=== PATIENT | male | born 1945 | race Caucasian/White ===

== ENCOUNTER 2024-09-14 11:46 | Observation (INO) ==
[~2024-09-14 11:46] MED LIST: Dexamethasone IV 4 MG/ML VIAL 1 ml VIAL ONE; Lidocaine 2% PF 5 ML VIAL ONE; Midazolam 2 mg/2 ml VIAL 1 mg/ml 2 ml VIAL (2 mg) ONE; Naloxone 0.4 mg VIAL 0.4 mg/ml 1 ml VIAL IV PRN; Ondansetron 4 mg VIAL 2 MG/ML 2 ml VIAL ONE; fentaNYL 250 mcg/5 ml 50 MCG/ML 5 ml VIAL (250 MCG) ONE
[2024-09-14 12:34] LABS: Rapid COVID-19 Molecular Undetected (Undetected)
[2024-09-14] MEDS ORDERED: Tranexamic Acid 1 GM/100ML BAG 2,000 MG/200 ML BAG IV ONE (12:58)
[2024-09-14] MEDS ORDERED: ceFAZolin 2 GM PREMIX 2 GM/50 ML BAG ONE (12:58)
[2024-09-14] MEDS ORDERED: ROPIVACAINE 5 MG/ML 30 ML BTL (0.5%) ONE (13:31)
[2024-09-14] MEDS ORDERED: Midazolam 2 mg/2 ml VIAL 1 mg/ml 2 ml VIAL (2 mg) ONE (14:49)
[2024-09-14] MEDS ORDERED: Acetaminophen IV 1 GM/100ML 1,000 MG/100 ML BAG IV ONE (14:55)
[2024-09-14] MEDS ORDERED: HYDROmorphone 0.5 MG/0.5 ML SYRINGE ONE (15:54)
[2024-09-14] MEDS ORDERED: fentaNYL 100 mcg/2 ml 50 MCG/ML VIAL ONE (16:05)
[2024-09-14] MEDS ORDERED: Ondansetron ODT 4 mg TAB 4 MG TAB PO PRN (16:52)
[2024-09-14] MEDS ORDERED: Calcium Carb (TUMS) 500 mg CHEW TAB PO PRN (16:52)
[2024-09-14] MEDS ORDERED: Magnesium Hydroxide LIQ 30 ML UDC PO PRN (16:52)
[2024-09-14] MEDS ORDERED: Ondansetron 4 mg VIAL 2 MG/ML 2 ml VIAL IV PRN (16:52)
[2024-09-14] MEDS ORDERED: Morphine 2 MG/ML SYRINGE IV PRN (16:52)
[2024-09-14] MEDS ORDERED: Lactulose 30 ml UDC PO PRN (16:52)
[2024-09-14] MEDS: Lactated Ringers 1000 ml BAG 1,000 ML IV SCH (20:52)
[2024-09-14] MEDS: Magnesium Hydroxide LIQ 30 ML UDC PO SCH (21:12)
[2024-09-15] MEDS: ceFAZolin 2 GM PREMIX 2 GM/50 ML BAG IV SCH (00:08)
[2024-09-15 06:54] LABS: Calcium 9.1 mg/dL (8.6-10.3); Creatinine, Serum 1.14 mg/dL (0.67-1.17); Potassium 4.8 mmol/L (3.5-5.0); eGFR CKD-EPI 66.2 (>60)
[2024-09-15] MEDS: Lactated Ringers 1000 ml BAG 1,000 ML IV SCH (07:12)
[2024-09-15 07:50] LABS: Hemoglobin 13.1 g/dL (13.2-16.3); Mean Platelet Volume 8.3 fL (7.5-11.2); Platelet Count 155 10^3/uL (150-450)
[2024-09-15] MEDS: CMCS:Febuxostat 40 mg TAB (NF) PO SCH (08:12)
[2024-09-15] MEDS: Vitamin THERAPEUTIC TAB PO SCH (08:13)
[2024-09-15 10:54] VITALS: BP 125/62
== END 2024-09-15 14:38 | disposition home or self-care (01) ==
LOC: SSU 11:46 → OR 11:46
PROVIDERS: ADMIT Orthopaedic Surgery Adult Reconstructive Orthopaedic Surgery; ATTEND Orthopaedic Surgery Adult Reconstructive Orthopaedic Surgery